=== PATIENT | female | born 1950 | race Asian ===

== ENCOUNTER 2019-04-01 08:57 | Day surgery (SDC) | payer OTHER ==
[~2019-04-01] VITALS: Ht 162.7 cm; Wt 45.5 kg
[~2019-04-01 08:57] MED LIST: 0.9% SODIUM CHLORIDE 10 ML SYRINGE IVP PRN; METOPROLOL TARTRATE 50 MG TABLET PO PRN
[2019-04-01] MEDS ORDERED: METOPROLOL TARTRATE 50 MG TABLET ONE (09:28)
[2019-04-01 09:45] LABS: ANION GAP 9 mmol/L (8-16); CALCIUM, TOTAL 9.3 mg/dL (8.8-10.5); CARBON DIOXIDE 27 mmol/L (22-29); CHLORIDE 105 mmol/L (98-107); CREATININE 0.64 mg/dL (0.60-1.30); GLOMERULAR FILTR. RATE CALC > 60 mL/min (>60); GLUCOSE,RANDOM 92 mg/dL (70-110); POTASSIUM 3.5 mmol/L (3.5-5.1); SODIUM SERUM 141 mmol/L (136-145); UREA NITROGEN, BLOOD 15 mg/dL (7-18)
[2019-04-01] MEDS ORDERED: VITAD50000 PO (10:17)
[2019-04-01] MEDS ORDERED: CALC-1038 PO (10:17)
[2019-04-01] MEDS ORDERED: AMLO-96 PO (10:17)
[2019-04-01] MEDS ORDERED: IOVERSOL 350 MG/ML 150 ML VIAL ONE (10:20)
[2019-04-01] MEDS ORDERED: SODIUM CHLORIDE 0.9% 100 ML ONE (10:20)
[2019-04-01] MEDS ORDERED: NITROGLYCERIN 400 MCG/SUBLINGUAL SPRAY 4.9 GM BOTTLE SL ONE (10:46)
[2019-04-01] MEDS ORDERED: METOPROLOL TARTRATE 5 MG/5 ML VIAL ONE ×2 (10:46→10:55)
[2019-04-01] MEDS ORDERED: METOPROLOL TARTRATE 5 MG/5 ML VIAL IVP ONE (11:15)
== END 2019-04-01 11:30 | disposition home or self-care (01) ==
LOC: SURGERY 08:57 → EDSTATUS 10:30 → SURGERY 11:30
PROVIDERS: ATTEND Internal Medicine Cardiovascular Disease
DX: R07.9 Chest pain, unspecified (principal); E78.00 Pure hypercholesterolemia, unspecified; I10 Essential (primary) hypertension; Z72.89 Other problems related to lifestyle; Z98.42 Cataract extraction status, left eye; Z98.41 Cataract extraction status, right eye
CPT/HCPCS: 36415; 75574; 80048; 93005; J3490; J7050; Q9967